=== PATIENT | male | born 1945 | race African-American/Black ===

== ENCOUNTER 2021-11-10 16:12 | Emergency (ER) | payer MEDICARE ==
[2021-11-10 16:18] VITALS: BP 136/71
--- NOTE | 2021-11-10 17:29 | Emergency Department Report ---
ED Headache HPI - General Chief Complaint: Headache Stated Complaint: KEEN, NEEDS CT Time Seen by Provider: 11/10/21 16:27 Source: patient, other (Notes from Office) Exam Limitations: language barrier - History of Present Illness Initial Comments: 76-year-old male presents from doctor's office for imaging secondary to right- sided headache for the last 2 weeks since fall. Patient fell while sitting on a boat striking the right side of his head 2 weeks ago. Patient has had a continued headache since. No reports of vomiting or focal neurologic deficits. As per medication list review patient does not take any blood thinners Allergies/Adverse Reactions: Allergies No Known Allergies Allergy (Unverified 06/06/16 10:46) ED Review of Systems ROS: Stated complaint: KEEN, NEEDS CT Other details as noted in HPI Comment: All other systems reviewed and negative ED Physical Exam - General Limitations: No Limitations - Other Other exam information: General: No acute distress Head: Atraumatic Eyes: normal appearance ENT: Moist mucous membranes Neck: Normal appearance, no midline tenderness Chest: Clear to auscultation bilaterally CV: Regular rate and rhythm Abdomen: Soft, normal bowel sounds, nontender, nondistended, no rebound or guarding Back: Normal inspection Extremity: Normal inspection, full range of motion Neuro: Alert, no facial asymmetry, speech clear, no gross motor sensory deficit, gait steady Psych: Appropriate behavior Skin: No rash ED Course Vital Signs 11/10/21 16:17 Temperature 98.5 F Pulse Rate 77 Respiratory 18 Rate Blood Pressure 136/71 [Right] O2 Sat by Pulse 96 Oximetry ED Medical Decision Making - Radiology Data Radiology results: report reviewed NONENHANCED CT SCAN OF THE HEAD: INDICATION / CLINICAL INFORMATION: 76 years Male; keen, right sided head injury 2 weeks ago. TECHNIQUE: Routine CT head without contrast. All CT scans at this location are performed using CT dose reduction for ALARA by means of automated exposure control. COMPARISON: CT scan of the head from 03/17/2012 FINDINGS: BRAIN / INTRACRANIAL CONTENTS: No intracranial sequela from the trauma; no scalp hematoma; no fluid level in the visualized portions of the paranasal sinuses No acute hemorrhage, mass effect, midline shift, hydrocephalus, or acute, large territorial infarct. No chronic infarct or focal atrophy. Patchy areas of volume loss along the lateral convexity of the left cerebral hemisphere. Document periventricular low- attenuation areas due to chronic small vessel disease CRANIOCERVICAL JUNCTION: No significant abnormality. ORBITS: Bony remodeling along the medial wall of the right orbit posteriorly Old trauma; this was seen in 2011 SINUSES / MASTOIDS: No significant abnormality of the visualized paranasal sinuses or mastoid air cells. ADDITIONAL FINDINGS: None. IMPRESSION: No intracranial sequela from the trauma - Medical Decision Making 76-year-old male presents to the hospital with headache x2 weeks after striking his head after a fall. CT head unremarkable. Patient will be discharged home with an instructed to take Motrin or Tylenol as needed for pain Critical Care Time: No Critical care attestation.: If time is entered above; I have spent that time in minutes in the direct care of this critically ill patient, excluding procedure time. ED Disposition Clinical Impression: Posttraumatic headache Disposition: 01 HOME / SELF CARE / HOMELESS Is pt being admited?: No Does the pt Need Aspirin: No Condition: Stable Instructions: Post-Concussion Syndrome, [id number] Additional Instructions: Take Tylenol or Motrin as needed for pain. Follow-up with your doctor or doctor/clinic provided. Return if symptoms worsen as indicated by your discha rge instructions. Referrals: RITU RAMOS MD [Primary Care Provider] - 3-5 Days Time of Disposition: 19:34
--- NOTE | 2021-11-10 17:43 | Cat Scan Report ---
NONENHANCED CT SCAN OF THE HEAD: INDICATION / CLINICAL INFORMATION: 76 years Male; ceja, right sided head injury 2 weeks ago. TECHNIQUE: Routine CT head without contrast. All CT scans at this location are performed using CT dos e reduction for ALARA by means of automated exposure control. COMPARISON: CT scan of the head from 03/17/2012 FINDINGS: BRAIN / INTRACRANIAL CONTENTS: No intracranial sequela from the trauma; no scalp hematoma; no fluid l evel in the visualized portions of the paranasal sinuses No acute hemorrhage, mass effect, midline shift, hydrocephalus, or acute, large territorial infarct. No chronic infarct or focal atrophy. Patchy areas of volume loss along the lateral convexity of the left cerebral hemisphere. Document periventricular low-attenuation areas due to chronic small vessel disease CRANIOCERVICAL JUNCTION: No significant abnormality. ORBITS: Bony remodeling along the medial wall of the right orbit posteriorly Old trauma; this was see n in 2011 SINUSES / MASTOIDS: No significant abnormality of the visualized paranasal sinuses or mastoid air raman ls. ADDITIONAL FINDINGS: None. IMPRESSION: No intracranial sequela from the trauma Signer Name: Alton Chacon MD Signed: 11/10/2021 5:39 PM Workstation Name: [id number]
== END 2021-11-10 20:05 | disposition home or self-care (01) ==
LOC: ED 16:12
DX: G44.309 Post-traumatic headache, unspecified, not intractable (principal)
CPT/HCPCS: 70450; 99283

== ENCOUNTER 2021-11-15 07:53 | Day surgery (SDC) | payer MEDICARE ==
[2021-11-15] MEDS ORDERED: SODIUM CHLORIDE 0.9% 500 ML 500 ML IV SCH (09:00)
[2021-11-15] MEDS ORDERED: ASPIRIN EC 325 MG TAB PO SCH (09:00)
[2021-11-15 09:20] LABS: Basophils % (Auto) 0.5 % (0.0-1.8); Eosinophils # (Auto) 0.1 K/mm3 (0.0-0.4); Eosinophils % (Auto) 2.1 % (0.0-4.3); Hematocrit 40.4 % (35.5-45.6); Hemoglobin 13.4 gm/dl (11.8-15.2); Lymphocytes # (Auto) 1.7 K/mm3 (1.2-5.4); Lymphocytes % (Auto) 29.6 % (13.4-35.0); Mean Corpuscular HGB Conc 33 % (32-34); Mean Corpuscular Volume 93 fl (84-94); Monocytes # (Auto) 0.8 K/mm3 (0.0-0.8); Monocytes % (Auto) 14.5 % (0.0-7.3); Platelet Count 183 K/mm3 (140-440); Red Blood Count 4.35 M/mm3 (3.65-5.03)
[2021-11-15 09:33] LABS: BUN/Creatinine Ratio 27; Blood Urea Nitrogen 24 mg/dL (9-20); Calcium 8.8 mg/dL (8.4-10.2); Hemolysis Index 7
[2021-11-15 09:35] LABS: INR 0.87 (0.87-1.13)
[2021-11-15] MEDS ORDERED: VERAPAMIL 5 MG/2 ML INJ ONE (10:21)
[2021-11-15] MEDS ORDERED: HEPARIN 10,000 UNITS/10 ML VIAL ONE (10:21)
[2021-11-15] MEDS ORDERED: HEPARIN/NS 5000 UNIT/500ML 1,000 ML IR ONE (10:21)
[2021-11-15] MEDS ORDERED: LIDOCAINE (2%) 20 MG/1 ML VIAL 20 ML MDV INFILTRATI ONE ×2 (10:22→11:35)
[2021-11-15] MEDS ORDERED: NITROGLYCERIN SYRINGE 3 ML ONE (10:22)
--- NOTE | 2021-11-15 10:41 | Electrocardiograph Report ---
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
[2021-11-15] MEDS ORDERED: fentaNYL 100 MCG/2 ML INJ ONE (10:42)
[2021-11-15] MEDS ORDERED: MIDAZOLAM 2 MG/2 ML INJ ONE (10:42)
[2021-11-15] MEDS ORDERED: fentaNYL 100 MCG/2 ML INJ IV ONE ×2 (11:25→11:33)
[2021-11-15] MEDS ORDERED: MIDAZOLAM 2 MG/2 ML INJ IV ONE ×2 (11:25→11:33)
[2021-11-15] MEDS ORDERED: NITROGLYCERIN 600 MCG/3 ML SYRINGE UD ONE (11:37)
[2021-11-15] MEDS ORDERED: VERAPAMIL 5 MG/2 ML INJ IV ONE (11:37)
[2021-11-15] MEDS ORDERED: HEPARIN 10,000 UNITS/10 ML VIAL IV ONE (11:37)
[2021-11-15] MEDS ORDERED: traMADol 50 MG TAB PO PRN (12:04)
--- NOTE | 2021-11-15 12:06 | Cardiac Catherization Report ---
DATE OF SERVICE: 11/15/2021 REASON FOR PROCEDURE: Abnormal stress test. PROCEDURES: 1. Left heart catheterization. 2. Selective left and right coronary angiography. 3. Left ventricular angiography. 4. Sedation time start 11:34, end 11:47. DESCRIPTION OF PROCEDURE: The patient was prepped and draped in a sterile fashion after informed consent. The right radial cath site was prepped and draped after a negative Noel's test. The right radial artery was entered using Seldinger technique followed by placement of a 6-Grenadian hydrophilic sheath. Routine radial cocktail was administered via the sheath. Selective left and right coronary angiography was performed using a #3.5 left Nena and a #4 right Nena. A pigtail catheter was used for left ventricular angiography. Catheters were then removed, sheath removed and hemostasis achieved using manual compression. The patient was returned to the postprocedure unit in stable condition. There were no complications. FINDINGS: HEMODYNAMICS: Left ventricular end-diastolic pressure was 11. Ascending aortic pressure was 106/60. There was no significant pressure gradient on pullback across the aortic valve. CORONARY ANGIOGRAPHY: Left main coronary artery was angiographically normal. There were mild irregularities of the proximal and mid LAD, otherwise this vessel and its diagonal branches were angiographically normal. The circumflex artery and its obtuse marginal branches were similarly free of significant disease. The right coronary artery was dominant, contained very mild irregularities, but otherwise essentially angiographically normal. There was normal left ventricular systolic function with ejection fraction approximately 60%. CONCLUSION: 1. Essentially, angiographically normal coronary arteries. 2. Normal left ventricular systolic function, ejection fraction 60%. RECOMMENDATIONS: Risk factor modification and medical therapy. TID: [id number] RECEIPT: [id number] CA/SAY
--- NOTE | 2021-11-15 12:07 | Discharge Summary ---
Short Stay Discharge Plan Activity: advance as tolerated Weight Bearing Status: Full Weight Bearing Diet: low fat, low cholesterol, low salt Wound: keep clean and dry Special Instructions: no heavy lifting (3 days) Follow up with: RITU RAMOS MD [Primary Care Provider] - 7 Days JUSTIN JUÁREZ MD [Staff Physician] - 7 Days
[2021-11-15] MEDS ORDERED: SODIUM CHLORIDE 0.9% 1000 ML 1,000 ML IV SCH (13:15)
[2021-11-15 14:03] VITALS: BP 112/66
== END 2021-11-15 14:45 | disposition home or self-care (01) ==
LOC: CATHLABREC 07:53
PROVIDERS: ATTEND Internal Medicine Cardiovascular Disease
DX: R94.39 Abnormal result of other cardiovascular function study (principal); R07.9 Chest pain, unspecified; I10 Essential (primary) hypertension; Z79.899 Other long term (current) drug therapy; Z79.82 Long term (current) use of aspirin; Z88.8 Allergy status to other drugs, medicaments and biological substances; Z98.890 Other specified postprocedural states
CPT/HCPCS: 36415; 80048; 85025; 85610; 93005; 93458; 99156; C1894; J1644; J1815; J2250; J3010; J3490; J7040; Q9967